=== PATIENT | female | born 1955 | race Caucasian/White ===

== ENCOUNTER → 2019-07-30 09:07 | Outpatient (CLI) | payer MEDICARE, OTHER, SELFPAY ==
--- NOTE | 2019-07-30 | DI.ECHO.S_ITS ---
[facility] +---------+ [facility] +---------+ : : [address] : : : : [id number] : : : : Phone: [phone]+ Echocardiogram Report + + :Name: NASREEN MATHEW Study Date: 07/30/2019 Height: 64.5 in: :[facility] Weight: 115 lb : : Gender: Female BSA: 1.6 m2 : :: 1955 Age: 64 yrs BP: 108/76 mmHg: :Reason For Study: FAMILY HISTORY OF ISCHEMIC HEART DISEASE : : Performed By: Raquel Thibodeaux : :Referring: KANDY GRAVES : + + Interpretation Summary The left ventricle is normal in size, wall thickness, and systolic function without any focal wall motion abnormalities with the ejection fraction visually estimated to be 60-65%. Diastolic parameters suggest probable normal left ventricular diastolic function and normal filling pressures. The right ventricle is not well visualized but grossly appears normal in size with probable normal systolic function. The right ventricular systolic pressure is estimated to be at least 27 mmHg based on an estimated right atrial pressure of 3 mm Hg. The right atrium is borderline dilated. There is mild tricuspid regurgitation but no other significant valvular heart disease. Procedure: A two-dimensional transthoracic echocardiogram with color flow and Doppler was performed. The study quality was technically adequate. There is no prior echocardiogram noted for this patient. Off axis apical window due to small rib spaces due to patient body habitus. The patient was in normal sinus rhythm during the exam. Left Ventricle: The left ventricle is normal in size, wall thickness, and systolic function without any focal wall motion abnormalities. The ejection fraction is estimated to be 60-65%. Diastolic parameters suggest probable normal left ventricular diastolic function and normal filling pressures. Right Ventricle: The right ventricle is not well visualized. The right ventricle grossly appears normal in size with probable normal systolic function. Atria: The left atrial size is normal. The right atrium is borderline dilated. There is no Doppler evidence for an atrial septal defect. Mitral Valve: The mitral valve leaflets appear borderline thickened, but open well. There is a flat closure plane of the the mitral valve leaflets. There is trace mitral regurgitation. Aortic Valve: The aortic valve is trileaflet. The aortic valve opens well. No aortic regurgitation is present. Tricuspid Valve: The tricuspid valve is normal in structure and function. There is mild tricuspid regurgitation. The right ventricular systolic pressure is estimated to be at least 27 mmHg based on an estimated right atrial pressure of 3 mm Hg. Pulmonic Valve: The pulmonic valve is not well visualized. There is no pulmonic valvular regurgitation. There is no other significant valvular heart disease. Great Vessels: The aortic root is normal size. The ascending aorta is normal in size. The IVC is of normal diameter and collapses greater than 50% with a sniff. This suggests a low right atrial pressure of 3 mm Hg. Pericardium/ Pleura There is no pericardial effusion. MMode/2D Measurements & Calculations LVIDd: 4.0 cm LVOT diam: 2.0 cm LVIDs: 2.6 cm Ao root diam: 2.8 cm FS: 34.7 % asc Aorta Diam: 3.0 cm EPSS: 0.79 cm Ao Arch Diam (Prox Trans): 2.7 cm IVSd: 0.52 cm LVPWd: 0.72 cm LV herrera. diameter/BSA (cm/m^2): 2.6 LV sys. diameter/BSA (cm/m^2): 1.7 LA A2 area: 14.7 cm2 RA long axis: 3.9 cm LA A4 area: 14.9 cm2 RA area: 14.3 cm2 LA length (vol): 4.3 cm RA vol: 45.4 ml LA vol: 43.1 ml RA : 29.2 ml/m2 LA vol index: 27.7 ml/m2 IVC diam: 2.2 cm RVD1 (basal): 3.5 cm RVD2 (mid): 3.2 cm TAPSE: 3.1 cm Doppler Measurements & Calculations Ao V2 max: 99.5 cm/sec LVOT Max Kush: 84.5 cm/sec Ao V2 mean: 72.0 cm/sec LV V1 max P.9 mmHg Ao max P.0 mmHg LV V1 VTI: 17.6 cm Ao mean P.2 mmHg JOHN(I,D): 2.3 cm2 Ao V2 VTI: 22.4 cm JOHN(V,D): 2.5 cm2 sev ratio: 0.78 JOHN indexed to BSA (cm^2/m^2): 1.5 MV E max kush: 104.6 cm/sec TR max kush: 246.4 cm/sec MV A max kush: 73.6 cm/sec TR max P.4 mmHg MV E/A: 1.4 PA V2 max: 87.1 cm/sec MV dec time: 0.20 sec PA V2 mean: 58.8 cm/sec MV P1/2t: 60.1 msec PA mean P.6 mmHg PA pr(Accel): 15.2 mmHg PA Accel Time: 0.12 sec MV /2t max kush: 104.8 cm/sec SV(LVOT): 52.5 ml MVA(2t): 3.7 cm2 Reading Physician:ANTHONY
== END ==
PROVIDERS: PCP Internal Medicine; Referring Provider Internal Medicine; Visit Provider Internal Medicine
DX: I07.1 Rheumatic tricuspid insufficiency (principal); Z82.49 Family history of ischemic heart disease and other diseases of the circulatory system
CPT/HCPCS: 93306

== ENCOUNTER → 2021-02-24 17:20 | Outpatient (CLI) | payer MEDICARE, SELFPAY ==
--- NOTE | 2021-02-24 17:22 | DI.RAD.S_ITS ---
PROCEDURE: XR HAND LT MIN 3V INDICATIONS: INJURY TECHNIQUE: 3 views of the hand(s) acquired. COMPARISON: None. FINDINGS: Bones: No fractures or dislocations. Carpal bones are normally aligned. No suspicious bony lesions. Scattered degenerative subchondral sclerosis and spurring. Soft tissues: No suspicious soft tissue calcifications. No radiopaque foreign body identified. IMPRESSION: No fracture. No radiopaque foreign body. Soft tissue swelling Dictated by: Campbell Genao M.D. on 02/25/2021 at 8:14 Approved by: Campbell Genao M.D. on 02/25/2021 at 9:07
== END ==
PROVIDERS: PCP Family Medicine; Referring Provider Nurse Practitioner; Visit Provider Nurse Practitioner
DX: S69.92XA Unspecified injury of left wrist, hand and finger(s), initial encounter (principal); M79.89 Other specified soft tissue disorders; X58.XXXA Exposure to other specified factors, initial encounter
CPT/HCPCS: 73130

== ENCOUNTER → 2022-03-06 16:01 | Outpatient (CLI) | payer MEDICARE, SELFPAY ==
--- NOTE | 2022-03-06 16:02 | DI.RAD.S_ITS ---
PROCEDURE: XR KNEE LT 3V INDICATIONS: left knee pain TECHNIQUE: 3 views of the knee were acquired. COMPARISON: None. FINDINGS: Bones: No fractures or dislocations. No suspicious bony lesions. Moderate narrowing of the medial femorotibial joint and tricompartmental periarticular osteophyte formation. Soft tissues: Mild joint effusion. No suspicious soft tissue calcifications. IMPRESSION: 1. Moderate knee joint effusion and tricompartmental knee joint degeneration, most notably involving the medial femorotibial joint. Dictated by: Sushil Wall Katherine Interpreted: Oly Dickson MD on 03/06/2022 at 16:18 Transcribed by: LAMONT on 03/06/2022 at 16:19 Approved by: Oly Dickson M.D. on 03/06/2022 at 16:52
== END ==
PROVIDERS: PCP Family Medicine; Referring Provider Family Medicine; Visit Provider Family Medicine
DX: M25.562 Pain in left knee (principal); M25.462 Effusion, left knee
CPT/HCPCS: 73562

== ENCOUNTER → 2024-03-19 10:35 | Outpatient (CLI) | payer MEDICARE, SELFPAY ==
--- NOTE | 2024-03-19 10:37 | DI.CT.S_ITS ---
PROCEDURE: CT INTERNAL AUDITORY CANALS BI INDICATIONS: chronic vertigo COMPARISON: None. TECHNIQUE: Noncontrast 0.6 mm thick axial sections acquired through each temporal bone separately. Coronal images are reformatted. FINDINGS: Image quality: Excellent. RIGHT: External auditory canal: Canal has a normal appearance. Middle ear: The middle ear structures, including the ossicles and tympanic membrane, appear normal. No abnormal fluid or soft tissue density. Inner ear: Inner ear is normally formed and appears unremarkable. Facial nerve appears normal throughout is course. Mastoids: Mastoid air cells are clear. LEFT: External auditory canal: Canal has a normal appearance. Middle ear: The middle ear structures, including the ossicles and tympanic membrane, appear normal. No abnormal fluid or soft tissue density. Inner ear: Inner ear is normally formed and appears unremarkable. Facial nerve appears normal throughout its course. Mastoids: Mastoid air cells are clear. MISCELLANEOUS: Visualized surrounding bones appear unremarkable. Visualized intracranial structures, including the cerebellopontine angle cisterns, appear normal. IMPRESSION: Normal appearance of the bilateral temporal bones. No cause for patient's symptoms identified. Dictated by: Ayaan Stone M.D. on 03/19/2024 at 11:50 Approved by: Ayaan Stone M.D. on 03/19/2024 at 11:52
== END ==
PROVIDERS: PCP Family Medicine; Referring Provider Family Medicine; Visit Provider Family Medicine
DX: R42 Dizziness and giddiness (principal)
CPT/HCPCS: 70480